=== PATIENT | female | born 1995 | race Caucasian/White ===

== ENCOUNTER 2019-06-17 19:26 | Emergency (ER) | payer OTHER ==
[2019-06-17] MEDS ORDERED: Bupivacaine PF 0.5% 30 ML VIAL ONE (19:48)
== END 2019-06-17 20:20 | disposition home or self-care (01) ==
LOC: MADERS 19:26
DX: K08.89 Other specified disorders of teeth and supporting structures (principal); F17.210 Nicotine dependence, cigarettes, uncomplicated; Z79.899 Other long term (current) drug therapy
CPT/HCPCS: 99282; S0020